=== PATIENT | female | born 1980 | race Caucasian/White ===

== ENCOUNTER → 2017-10-19 09:38 | Outpatient (CLI) | payer OTHER, SELFPAY ==
--- NOTE | 2017-10-19 10:00 | MRI_ITS ---
STUDY: MRI BRAIN WITH AND WITHOUT CONTRAST (ATTENTION PITUITARY GLAND) REASON FOR EXAM: Female, 37 years old. Pituitary adenoma, FOLLOW UP, NO NEW SYMPTOMS. TECHNIQUE: Standardized multiplanar fat and water weighted pulse sequences were obtained. 10 ml of Gadavist contrast material was administered intravenously for the contrast portion of the examination. COMPARISON: April 22, 2010 FINDINGS: Normal size of the pituitary gland for the patient?s age and gender. Again noted is the hypointense lesion at the midline measuring approximately 2 x 2 mm. Normal infundibular stalk and suprasellar cistern. Normal optic chiasm and hypothalamus. Normal size of the ventricles and extra-axial spaces for the patient's age. Normal white matter tracts of the supratentorial brain. Normal bilateral basal ganglia. Normal thalami. Normal flow voids within the major intracranial circulation suggesting patency by spin echo criteria. Normal venous enhancement. There is no enhancing intra-axial or extra-axial abnormality. There is no extra-axial fluid accumulation. Normal tectal plate and pineal gland. Normal midbrain, lucinda and medulla. Normal cerebellum. Normal basal cisterns. Normal bilateral temporal bones. Normal bilateral internal auditory canals. No demonstrated orbital abnormality, within the constraints of a routine brain study. Normal visualized paranasal sinuses. Normal calvarium and skull base. Normal visualized upper cervical spine. Normal visualized soft tissue structures. MRI/Brain W/WO Contrast IMPRESSION: Decreased pituitary nonenhancing lesion measuring now 2 mm. Leading differential considerations are Rathke's cleft cyst and microadenoma. Electronically Signed: Zen Tovar MD at 9:57 EDT Tel , Service support ,
--- NOTE | 2017-10-19 10:59 | US_ITS ---
STUDY: THYROID ULTRASOUND REASON FOR EXAM: Female, 37 years old. Thyromegaly. Pituitary tumor. TECHNIQUE: Ultrasound evaluation of the thyroid was performed with real-time and static brennan-scale imaging. COMPARISON: None. FINDINGS: RIGHT LOBE: The right lobe of the thyroid gland is enlarged and measures 4.7 x 2.1 x 1.2 cm. There is a homogeneous echotexture. There are no demonstrated solid, cystic or complex lesions. LEFT LOBE: The left lobe of the thyroid gland is enlarged that measures 4.8 x 1.9 x 1.2 cm. There is a homogeneous echotexture. Midpole solid nodule measuring 0.5 x 0.5 x 0.3 cm. ISTHMUS: The isthmus measures 3 mm which is normal. The regional lymph nodes are normal. US/Thyroid IMPRESSION: Thyromegaly. 0.5 cm solid nodule midpole of the left lobe. Electronically Signed: David Cole MD at 0:06 EDT , Service support ,
== END ==
PROVIDERS: Family Provider Internal Medicine; PCP Internal Medicine; Visit Provider Internal Medicine
DX: D35.2 Benign neoplasm of pituitary gland (principal); E01.0 Iodine-deficiency related diffuse (endemic) goiter
CPT/HCPCS: 70553; 76536; A9585

== ENCOUNTER → 2017-11-26 10:42 | Outpatient (CLI) | payer OTHER, SELFPAY ==
--- NOTE | 2017-11-26 10:46 | US_ITS ---
STUDY: ABDOMINAL ULTRASOUND - RIGHT UPPER QUADRANT REASON FOR VISIT: Female, 37 years old. Intermittent epigastric pain for 2 years, recently worsening. TECHNIQUE: Ultrasound evaluation of the right upper quadrant was performed with real-time and static brennan-scale imaging. TECHNICAL QUALITY: Adequate. Examination limited by bowel gas. COMPARISON: Prior comparison studies are not available for review at this time. FINDINGS: Liver: The liver measures 16.8 cm. There is mild increased echogenicity of the liver. The bile ducts are within normal limits. There is hepatic color flow. The direction of portal flow is hepatopetal. A well-defined 3.6 x 3.3 x 3.6 cm soft tissue mass is seen at the anterior inferior margin of the liver. Gallbladder: Normal distended gallbladder. The gallbladder wall measures 5.8 mm. There is a positive sonographic Kohli's sign. There is no pericholecystic fluid. There are multiple echogenic structures within the gallbladder, consistent with multiple gallstones. Common Bile Duct (C.B.D.): The common bile duct was obscured by shadowing from the gallbladder. Pancreas: There is nonvisualization of the pancreas. Right Kidney: Normal size of the right kidney. The right kidney measures 11.2 x 6.0 x 4.8 cm. Normal renal cortex. The right cortex measures 1.7 cm. There is no demonstrated renal mass or cyst. There is no right hydronephrosis. US/Gallbladder IMPRESSION: 1. Gallstones. There is a positive sonographic Kohli sign, and the gallbladder wall is thickened, findings that are associated with acute cholecystitis. No pericholecystic fluid, however. One might consider nuclear medicine HIDA scan for confirmation. 2. The common bile duct was obscured by shadowing from the gallstones. 3. The pancreas is obscured by bowel gas. 4. Mild increased echogenicity of the liver, which may reflect fatty infiltration. 3.6 cm mass at the margin of the liver correlates to a site of focal nodular hyperplasia described on previous reports. 5. Unremarkable right kidney. Electronically Signed: Raudel Montoya MD at 12:29 EDT , Service support ,
== END ==
PROVIDERS: Family Provider Internal Medicine; PCP Internal Medicine; Visit Provider Internal Medicine
DX: K80.00 Calculus of gallbladder with acute cholecystitis without obstruction (principal); K76.89 Other specified diseases of liver
CPT/HCPCS: 76705

== ENCOUNTER 2017-11-30 12:21 | Day surgery (SDC) | payer OTHER, SELFPAY ==
[2017-11-30] VITALS (9 sets, daily range): BP systolic 117–152; BP diastolic 49–96; PULSE 65–104; RESP 16–20; TEMP 36–36.6; O2SAT 97–100; BMI 39.4
--- NOTE | 2017-11-30 12:28 | EKG12_ITS ---
Test Reason : PRE OP Blood Pressure : / mmHG Vent. Rate : 079 BPM Atrial Rate : 079 BPM P-R Int : 140 ms QRS Dur : 086 ms QT Int : 368 ms P-R-T Axes : 024 -06 024 degrees QTc Int : 421 ms Normal sinus rhythm Normal ECG Confirmed by MONIQUE ROSARIO, JAMMIE ([id number]), metropolitan editor HANNAH CASTELLANO ([id number] on 12/03/2017 3:09:55 PM Referred By: Kenneth Price Confirmed By:JAMMIE AMAYA MD
[2017-11-30 12:51] LABS: Internal QC Validated? YES +Cl - CLEAR BKGD; Pregnancy, Urine Negative Negative
[2017-11-30 13:07] LABS: Absolute Lymphocyte Count 1.86 X10^3/ul (0.83-4.51); Absolute Neutrophil Count 2.1 X10^3/uL (2.0-7.7); Basophil# 0.01 X10^3/uL; Basophil% 0.2 % (0-1); Eosinophil# 0.13 X10^3/uL; Eosinophils% 2.9 % (0-5); Hemoglobin 14.2 g/dl (12.0-15.0); Lymphocyte # 1.86 X10^3/ul (4.0); Lymphocyte % 41.2 % (19-41); Mean Corp Hgb Conc 33.8 g/gl (32-36); Mean Corpuscular Volume 88.6 fL (81-99); Mean Platelet Vol. 10.1 fl (6.2-12.0); Monocyte# 0.37 X10^3/uL; Monocyte% 8.2 % (0-10); Neutrophil # 2.14 X10^3/uL (2.7-7.7); Neutrophil % 47.5 % (47-70); POSITIVE COUNT NO; POSITIVE DIFFERENTIAL NO; POSITIVE MORPHOLOGY NO; Platelet Count 249 K/mm3 (150-450); RBC Distribution Width CV 12.2 % (11.6-14.6); Red Blood Count 4.74 M/mm3 (4.2-5.4); White Blood Count 4.5 K/mm3 (4.4-11.0)
[2017-11-30 13:23] LABS: ALB/GLOB Ratio 1.2 RATIO (0.9-2.4); AST(SGOT) 15 U/L (15-37); Alanine Aminotransfer ALT/SGPT 46 U/L (13-56); Alkaline Phosphatase 92 U/L (45-117); Anion Gap 9 (5-15); BUN 10 mg/dL (7-18); BUN/Creat Ratio 12.8 RATIO (10-20); Calcium,Total 9.1 mg/dL (8.5-10.1); Chloride 105 mmol/L (98-107); Creatinine, Serum 0.78 mg/dL (0.55-1.02); EST Glomerular Filtration Rate 88 mL/min (>60); Est Glom Filt Rate - Afr Amer 107 mL/min (>60); Estimated Creatinine Clearance 88.86 ml/min; Globulin 3.3 g/dL (2.2-4.2); Glucose 96 mg/dL (74-106); Potassium 3.9 mmol/L (3.5-5.1); Protein, Total 7.3 g/dL (6.4-8.2); Sodium Level 142 mmol/L (136-145)
--- NOTE | 2017-11-30 14:00 | RAD_ITS ---
STUDY: INTRAOPERATIVE CHOLANGIOGRAM. REASON FOR EXAM: Female, 37 years old. Cholecystectomy. FLUOROSCOPY TIME (if supplied): (0:15) minutes/seconds TECHNIQUE: An intraoperative cholangiogram was performed by the surgeon. Imaging was submitted. COMPARISON: None. FINDINGS: The intrahepatic biliary ducts are unremarkable. The common bile duct is not dilated. No intraluminal filling defect is seen. There is free flow of contrast into the duodenum. RAD/Cholangiogram/ O R,Initial IMPRESSION: Unremarkable intraoperative cholangiogram. Electronically Signed: Sohan Díaz MD at 8:12 EDT Tel [phone], Service support ,
--- NOTE | 2017-11-30 14:10 | GALL_PTH ---
PATIENT: STEFANI LANGSTON LOC: [facility] [place] U#:[id number] AGE/SX: 37/F ROOM: RE11/30/[address]: Dr. Kenneth Price MD : [id number] BED: DIS: 11/30/2017 SPEC #: [id number] RECD: 12/01/17 08:10 STATUS: SAURAV DARRIAN #: [id number] SOY: 11/30/17 14:[address]: Kenneth Price DEPT: SURGICAL PATHOLOGY RECD BY: Kyra Sparks ENTERED: 12/01/17 09:04 SP TYPE: PATITO MARTINES DR: Dr. Anamaria Burt DO Tissues: Gallbladder, NOS Procedures: Surgery Specimen Level III HEADER OPERATION: Laparoscopic, cholecystectomy with IOC, possible open PRE-OP DIAGNOSIS: Chronic cholecystitis TISSUE SUBMITTED: Gallbladder MICROSCOPIC DIAGNOSIS Gallbladder: Chronic cholecystitis and cholelithiasis. SJ:reji 12/02/17 MICROSCOPIC DESCRIPTION Slides are reviewed. GROSS DESCRIPTION Received is one container labeled with the patient's name and designated gallbladder. The specimen consists of a gallbladder measuring 12 cm in length and up to 3 cm in diameter. The external surface is pink-mantilla, smooth and glistening for the most part. Focally it is granular, hemorrhagic and contains cautery artifact. The gallbladder contains green-yellow mucoid bile and distended with multiple multifaceted, yellowish stones and stone fragments measuring in aggregate 8 x 8 x 2.5 cm and 0.1 to 1 cm in greatest dimension. The mucosa is bile-stained and without any mass lesions. The gallbladder wall measures 0.2 cm in thickness. Kiln Firer sections from the gallbladder and the cystic duct are submitted in one cassette. / SJ:reji 12/01/17 TC:3 CPT: 24377
[2017-11-30] MEDS: Bupivacaine Mpf 0.5% 30 ML VIAL (15:00)
--- NOTE | 2017-11-30 15:15 | OP.PCM_ITS ---
Problem List (1) Biliary colic Status: Acute Report of Operation Date of Procedure: 11/30/17 Pre-Operative Diagnosis: Biliary colic and cholelithiasis Post-Operative Diagnosis: Same Surgery/Procedure Performed:: Laparoscopic cholecystectomy with cholangiogram Specimen's removed: Gallbladder and contents Description of Procedure: After obtaining informed consent patient was brought back to the operating room. General anesthesia was induced. The abdomen was prepped and draped in usual sterile fashion. A small midline incision was made superior to the umbilicus and deepened to the level of fascia. The fascia was elevated and incised. Next the peritoneum was elevated and incised in the same fashion. Finger sweep was performed and the Hayes trocar was placed into the abdomen. The balloon was inflated. The abdomen was inflated to 15 mmHg. Next a camera was introduced into the abdomen and the abdomen was inspected. Next under direct visualization three 5-mm ports were placed one subxiphoid and 2 subcostal. Next the gallbladder was elevated and retracted toward the right shoulder. The peritoneum was stripped from the gallbladder. The infundibulum was located and retracted laterally. Next the triangle of Calot was dissected and the cystic duct and cystic artery were identified. Cholangiograms were performed. The Tapia catheter was used to clamp across the infundibulum and the needle was inserted into the gallbladder. Under fluoroscopy contrast was instilled into the gallbladder and the common duct, cystic duct as well as proximal hepatic ducts were identified. There was good filling of the duodenum. There were no filling defects noted in the common bile duct. The clamp was removed as well as the needle and the infundibulum was grasped once more. Three hemolock clips were placed across the cystic duct. The cystic duct was then divided leaving 2 clips on the stump. The cystic artery was clipped and divided in the same fashion. The hook cautery was then used to take the gallbladder off of the gallbladder bed. Hemostasis was obtained. Gallbladder fossa was irrigated and no active bleeding or bile leakage was noted. Next the camera switched to a 5 mm camera and introduced in the subxiphoid port. An Endopouch bag was placed through the umbilical port and the gallbladder was placed into it. The gallbladder was then removed through the umbilical incision. The camera was then reinserted through the umbilical port. The gallbladder fossa was inspected once more and noted to be hemostatic with no leaking bile. The abdomen was suctioned dry the 5 mm ports were removed under direct visualization. The umbilical port was then removed and the air was removed from the abdomen. Next using an 0 Vicryl suture the umbilical fascia was closed in a [id number] fashion. The umbilical port site was irrigated local anesthetic was administered to all the incisions. All the incisions were closed subcuticular 4-0 Monocryl sutures followed by Steri- Strips and dressings. The patient was awoken and taken to PACU in stable condition. - Admit VTE Documentation VTE Mechan Device Prophylaxis: SCD's
--- NOTE | 2017-11-30 15:16 | DCINST_ITS ---
Discharge Diet: Light diet - advance as tolerated Discharge Activity: Return to Normal Activity, May Not Drive - for 2-3 days or while taking narcotic pain medicataions., - - Do not drive, work heavy equipment or sign legal documents for 24 hours. May shower in (days): 1 - with the bandage in place. Lifting Restrictions: 20 lbs for 2 weeks, ok for light duty when you feel up to it Additional Activity Instructions:: Pain medication may cause nausea. You should typically eat light foods as you take your pain medications. Pain medication may also cause constipation. If this is a problem for you, please discuss with your doctor. Call your doctor if your incision/area has: Continuous Slow Oozing, Sudden Increased Bleeding, Increased Pain/ Swelling, Increased Redness, Foul Smelling Discharge, Fever of 101 or Higher Call your doctor if you observe: Fever of 101 or Higher Suture Line Care: Avoid Pulling/Pushing, Avoid Pinching/Bending Additional Dressing/Incision Instructions:: Leave operative bandaids on for 2 days. When you remove dressing, leave Steri-Strips on until your follow-up appointment, or until the Steri-Strips fall off on their own. Allergies/Adverse Reactions: Allergies No Known Allergies Allergy (Verified 11/29/17 14:56) Medications to take at Discharge Albuterol Inhaler [Ventolin Hfa (SP)] 1 puff INHALATION Q4H PRN PRN 03/25/16 Cholecalciferol (Vitamin D3) [Vitamin D] 50,000 unit PO QWEEK 04/05/16 Multivitamin 1 tab PO DAILY 11/30/17 Oxycodone HCl/Acetaminophen [Percocet 5/325] 1 - 2 tablet PO Q4H PRN PRN 7 Days #30 tablet 11/30/17 The following prescriptions were given: Oxycodone HCl/Acetaminophen [Percocet 5/325] 1 - 2 tablet PO Q4H PRN PRN 7 Days #30 tablet PRN Reason: Pain Primary Care Physician: Anamaria Burt DO [Primary Care Provider] - Please Follow Up With: Kenneth Price MD When: Please call tomorrow to schedule 2 week follow up appointment.
== END 2017-11-30 18:51 | disposition home or self-care (01) ==
LOC: SDC 12:23 → AC 12:23
PROVIDERS: Family Provider Internal Medicine; PCP Internal Medicine; Visit Provider Surgery
PROC: (CPT 47610; principal; 2017-11-30 13:50)
DX: K80.10 Calculus of gallbladder with chronic cholecystitis without obstruction (principal); J45.909 Unspecified asthma, uncomplicated
CPT/HCPCS: 00790; 47563; 74300; 76000; 80053; 81025; 85025; 88304; 93005; J7120; J2405

== ENCOUNTER 2021-06-20 10:32 | Emergency (ER) | payer OTHER, SELFPAY ==
[2021-06-20] VITALS (8 sets, daily range): BP systolic 106–139; BP diastolic 73–93; PULSE 74–90; RESP 16–18; TEMP 36.7; O2SAT 96–100; BMI 41.2
--- NOTE | 2021-06-20 11:21 | EKG12_ITS ---
Test Reason : CP Blood Pressure : / mmHG Vent. Rate : 094 BPM Atrial Rate : 094 BPM P-R Int : 164 ms QRS Dur : 084 ms QT Int : 356 ms P-R-T Axes : 046 -11 029 degrees QTc Int : 445 ms Normal sinus rhythm Normal ECG Confirmed by MARITZA ROSARIO, CHIP ([id number]), greeting card editor NARESH SAINI ([id number]) on 06/23/2021 9:11:56 AM Referred By: ES/AR Confirmed By:JAMIL SALAS MD
--- NOTE | 2021-06-20 11:30 | RAD_ITS ---
STUDY: X-RAY CHEST REASON FOR EXAM: Female, 40 years old. chest pain TECHNIQUE: Single AP portable view of the chest. COMPARISON: 05/20/2016 FINDINGS: The lungs are clear and expanded. There is no demonstrated pleural abnormality. Normal size heart. Normal mediastinum and john. Normal visualized pulmonary arteries. Normal visualized aortic arch and descending thoracic aorta. Normal visualized thoracic spine. Normal visualized ribs, clavicles, and shoulders. There is no demonstrated abnormality of the visualized soft tissue structures of the upper abdomen. RAD/Chest 1 View (Portable) IMPRESSION: Normal x-ray examination of the chest. Electronically Signed: Aly Moore MD at 16:22 EST Tel , Service support ,
[2021-06-20 11:35] LABS: Absolute Lymphocyte Count 1.89 X10^3/uL (0.83-4.51); Absolute Neutrophil Count 3.4 X10^3/uL (2.0-7.7); Basophil# 0.02 X10^3/uL; Basophil% 0.3 % (0-1); Eosinophil# 0.36 X10^3/uL; Eosinophils% 5.9 % (0-5); Hemoglobin 13.9 g/dL (12.0-15.0); Lymphocyte # 1.89 X10^3/ul (0.83-4.51); Lymphocyte % 30.8 % (19-41); Mean Corp Hgb Conc 33.9 g/dL (32-36); Mean Corpuscular Hgb 30.4 pg (27.0-32.0); Mean Corpuscular Volume 89.7 fL (81-99); Monocyte# 0.47 X10^3/uL; Monocyte% 7.7 % (0-10); NRBC Flagged by Analyzer 0 % (0-5); Neutrophil # 3.37 X10^3/uL (2.7-7.7); Platelet Count 271 K/mm3 (150-450); RBC Distribution Width CV 11.9 % (11.6-14.6); RBC Distribution Width SD 38.6 fl (35.1-43.9); Red Blood Count 4.57 M/mm3 (4.2-5.4); White Blood Count 6.1 K/mm3 (4.4-11.0)
[2021-06-20] MEDS: Aspirin 81 MG TAB.CHEW 324 MG PO (11:37)
[2021-06-20] MEDS: Nitroglycerin SL (ED/IMG/CATH) 0.4 MG TABLET SL ×3 (11:38→12:02)
[2021-06-20 11:57] LABS: Anion Gap 6 (5-15); BUN 17 mg/dL (7-18); BUN/Creat Ratio 25.7 RATIO (10-20); Calcium,Total 9.8 mg/dL (8.5-10.1); Chloride 105 mmol/L (98-107); Creatinine, Serum 0.66 mg/dL (0.55-1.02); EST Glomerular Filtration Rate 105 mL/min (>60); Est Glom Filt Rate - Afr Amer 127 mL/min (>60); Estimated Creatinine Clearance 101.96 ml/min; Glucose 97 mg/dL (74-106); Sodium Level 141 mmol/L (136-145); Troponin-I HS < 3 pg/mL (3.0-54.0)
--- NOTE | 2021-06-20 14:25 | ED.VIS.CHEST ---
HPI History of Present Illness Chief Complaint: Chest Pain Informant: patient Onset/Context/Timing Onset: Yesterday Activity at onset: sudden and rest Timing: Intermittent Quality: Positive for Tightness Location: Substernal and Left Chest Worsened By: Nothing Relieved By: Nothing Associated Symptoms: Positive for Nausea, Lightheadedness, Acid Reflux and Palpitations; Negative for Vomiting, Diaphoresis, Dyspnea, Cough and Fever Narrative Narrative: Patient presents with chest pain that began today. Patient states she also had a similar episode yesterday. Patient states the pain radiates to her left shoulder and left arm. Patient states it is mainly over the substernal and left chest area. Patient describes as a tightness. Patient states nothing makes it better nothing makes it worse. Patient admits to some mild nausea but denies any vomiting. Patient denies any diaphoresis. Patient denies any shortness of breath or cough. Patient does admit to some lightheadedness and palpitations. Patient also has a history of reflux disease. CVD Risk Factors: Negative for Hypertension, Diabetes, Hypercholesterolemia, Family History 1' </=55 and Smoking PE Risk Factors: Negative for Recent Travel/Surgery, Recent Immobilization, Prior DVT or PE, Cancer and OCP + Smoking + >/=35 PFSH PFSH Medical History Asthma Depression Gallstones Home Medications albuterol sulfate 1 puff INHALATION Q4H PRN PRN 03/25/16 [History Last Taken Unknown] cholecalciferol (vitamin D3) 50,000 unit PO QWEEK 04/05/16 [History Last Taken Unknown] Multivitamin 1 tab PO DAILY 11/30/17 [History Last Taken Unknown] aspirin [Aspir-81] 81 mg PO DAILY 06/20/21 [History Last Taken Unknown] Allergy/AdvReac Type Severity Reaction Status Date / Time No Known Allergies Allergy Verified 06/20/21 10:32 Family History Father Diabetes Hypertension Cancer bladder Brother Asthma Mother Asthma Surgical History S/P laparoscopic cholecystectomy (~11/2017) S/P tonsillectomy S/P wisdom tooth extraction Social History Smoking Status: Never smoker ROS ROS ED Constitutional Constitutional ED: Denies chills or fever(s) Eyes Eyes: Denies blurry vision or change in vision ENT ENT ED: Denies rhinorrhea or sore throat Cardiovascular Cardiovascular: Reports chest pain and palpitations Respiratory/Chest Respiratory/Chest: Denies cough or dyspnea Gastrointestinal Gastrointestinal: Reports nausea; Denies abdominal pain or vomiting Genitourinary Genitourinary ED: Denies dysuria or hematuria Musculoskeletal Musculoskeletal: Denies back pain or neck pain Integumentary Denies abscess or rash Neurologic Neurologic: Denies headache(s) or weakness Allergic/Immunologic Allergic/Immunologic ED: Denies mouth swelling or urticaria EXAM Physical Exam Const Vital Signs: 06/20/21 10:33 06/20/21 11:36 06/20/21 11:38 Temperature 98.0 F Temperature Source Oral Pulse Rate 90 87 Respiratory Rate 16 Blood Pressure 139/78 H 121/91 H Blood Pressure Mean 98 Pulse Ox 100 99 Oxygen Delivery Method Room Air Room Air 06/20/21 11:40 06/20/21 11:49 06/20/21 12:02 Temperature Temperature Source Pulse Rate 85 79 74 Respiratory Rate 18 16 Blood Pressure 121/91 H 106/93 H 119/76 Blood Pressure Mean 101 90 Pulse Ox 100 97 Oxygen Delivery Method Room Air Room Air 06/20/21 13:11 06/20/21 14:44 Temperature Temperature Source Pulse Rate 84 Respiratory Rate 16 16 Blood Pressure 118/83 H 121/73 H Blood Pressure Mean 94 Pulse Ox 99 96 Oxygen Delivery Method Room Air Positive well nourished, well developed and obese General Appearance ED: well developed Nutritional Appearance: obese HEENT normocephalic and atraumatic Eyes PERRL and EOMs intact bilaterally Neck supple and no JVD Chest Wall palpation of chest normal Resp normal respiratory effort and clear to auscultation bilaterally Effort and Inspection: Negative for respiratory distress Cardio regular rate, regular rhythm and no murmurs GI normal to inspection, nondistended, normoactive bowel sounds, soft to palpation, non-tender and non-distended Extremity normal to inspection General Extremety ED: Negative for edema or tenderness General Extremity: Negative for edema Neuro oriented x3, CN's II-XII intact bilaterally and no sensory deficits noted Sensorium / Orientation: awake and alert Motor Exam: strength 5/5 throughout Psych mental status grossly normal Heart Score History: Moderately Suspicious ECG: Normal Age: </= 45 years Risk Factors: No Risk Factors Troponin: </= Normal Limit Score: 1 MDM MDM MDM Narrative Medical decision making narrative: EKG was obtained. On my interpretation, it showed a normal sinus rhythm with a rate of 94. RI interval, QRS interval, and QTc intervals were all normal. [place] was normal. There are no acute ST or T wave changes. Portable 1 view chest x-ray was obtained. On my interpretation, lung to are clear. There is normal cardiac silhouette. Bony thorax is normal. There is no acute process noted. Radiologist also interpreted the x-ray and agrees. CBC and basic metabolic profile were within normal limits. High-sensitivity troponin was less than 3. Patient was advised of her findings. Patient has a HEART score of 1. Patient was advised that this is low risk for acute cardiac event. Patient was instructed to follow-up with her primary care physician in 3 to 5 days for further evaluation. Patient understood and was agreeable with the plan. All questions were answered. Lab Data Attestation: I reviewed the patient's lab results. Labs: Laboratory Results - last 24 hr 06/20/21 06/20/21 11:05 11:05 WBC 6.1 RBC 4.57 Hgb 13.9 Hct 41.0 MCV 89.7 MCH 30.4 MCHC 33.9 RDW Std Deviation 38.6 RDW Coeff of Linda 11.9 Plt Count 271 MPV 10.0 Immature Gran % (Auto) 0.300 Neut % (Auto) 55.0 Lymph % (Auto) 30.8 Harney % (Auto) 7.7 Eos % (Auto) 5.9 H Baso % (Auto) 0.3 Absolute Neuts (auto) 3.4 Absolute Lymphs (auto) 1.89 Nucleated RBC % 0 Sodium 141 Potassium 4.0 Chloride 105 Carbon Dioxide 30.0 Anion Gap 6 BUN 17 Creatinine 0.66 Estim Creat Clear Calc 101.96 Est GFR (MDRD) Af Amer 127 Est GFR (MDRD) Non-Af 105 BUN/Creatinine Ratio 25.7 H Glucose 97 Calcium 9.8 Troponin I High Sens < 3 L Radiography Chest X-Ray - ED: 1 View, Read by ED Physician and Normal EKG Initial EKG: Attestation: I personally reviewed and interpreted this EKG as follows: Interpretation: Sinus Rhythm (94) and No Acute Injury Pattern Discharge Plan Triage Chief Complaint: Chest Pain ED Provider: Sean Ridley Dx/Rx/DC Orders Clinical Impression: Chest pain Instructions: ED Chest Pain, Uncertain Cause Prescriptions: No Action albuterol sulfate 1 INHALER inhaler 1 puff INHALATION Q4H PRN PRN (Reason: Wheezing) RF: 0 cholecalciferol (vitamin D3) 50,000 UNIT capsule 50,000 unit PO QWEEK RF: 0 Multivitamin 1 tab PO DAILY RF: 0 aspirin [Aspir-81] 81 mg Tablet,Delayed Release (Dr/Ec) 81 mg PO DAILY RF: 0 Primary Care Provider: Anamaria Burt Referrals: Anamaria Burt DO [Primary Care Provider] - 3-5 Days Disposition Disposition: Home, Self Care Discharge Date/Time: 06/20/21 14:49
== END 2021-06-20 14:49 | disposition home or self-care (01) ==
PROVIDERS: Emergency Provider Emergency Medicine; PCP Internal Medicine
DX: R07.9 Chest pain, unspecified (principal); E66.9 Obesity, unspecified; J45.909 Unspecified asthma, uncomplicated; Z79.82 Long term (current) use of aspirin; Z79.899 Other long term (current) drug therapy
CPT/HCPCS: 71045; 80048; 84484; 85025; 93005; 99285

== ENCOUNTER → 2024-02-10 | Outpatient (CLI) | payer OTHER, SELFPAY ==
--- NOTE | 2024-02-10 16:28 | BD_ITS ---
STUDY: DUAL ENERGY X-RAY ABSORPTIOMETRY / DXA REASON FOR EXAM: Female, 43 years old. Screening, estrogen def TECHNIQUE: Bone Mineral Density (BMD) measurements of lumbar spine and bilateral hips were obtained. COMPARISON: None. FINDINGS: Lumbar Spine (L1-L4): g/cm2 (0.956) / T-score (-1.3) / Z-score (-0.9) Findings are suggestive of osteopenia with a low fracture risk. Left Femur Total: g/cm2 (1.025) / T-score (0.7) / Z-score (0.9) Left Femoral Neck: g/cm2 (0.871) / T-score (0.2) / Z-score (0.6) Right Femur Total: g/cm2 (1.003) / T-score (0.5) / Z-score (0.8) Right Femoral Neck: g/cm2 (0.850) / T-score (0.0) / Z-score (0.4) BD/Dexa Bone Density Study IMPRESSION: The patient is considered osteopenic as outlined below according to World Wan Organization (WHO) criteria with a low fracture risk. Reference Information: The T-score is the number of standard deviations above or below the standard which is normal for young adults at their peak bone mineral density. The World Health Organization (WHO) interprets the T-scores as follows: Above -1 Normal bone density Between -1 and -2.5 Osteopenia Equal to / or below -2.5 Osteoporosis As a practical clinical guideline, osteopenia may be graded as follows: Mild -1 through -1.5 Moderate -1.6 through -2.0 Severe -2.1 through -2.4 The Z-score is the number of standard deviations above or below age-matched controls. A Z-score of less than -1.5 would be considered abnormal. References: 1. NIH Osteoporosis and Related Bone Diseases www osteo.org 2. International Society for Clinical Densitometry www iscd.org 3. National Osteoporosis Foundation www nof.org Electronically Signed: Sohan Díaz MD at 14:34 EDT ,
== END | disposition home or self-care (01) ==
LOC: OPBD 16:28
PROVIDERS: PCP Internal Medicine; Referring Provider Internal Medicine Endocrinology, Diabetes & Metabolism; Visit Provider Internal Medicine Endocrinology, Diabetes & Metabolism
DX: D35.2 Benign neoplasm of pituitary gland (principal)
CPT/HCPCS: 77080

== ENCOUNTER → 2024-02-24 | Outpatient (CLI) | payer OTHER, SELFPAY ==
--- NOTE | 2024-02-24 07:33 | MRI_ITS ---
STUDY: MRI BRAIN WITH AND WITHOUT CONTRAST REASON FOR EXAM: Female, 43 years old. Size of pituitary adenoma -- ATTN: THIN CUTS PITUITARY TECHNIQUE: Standardized multiplanar fat and water weighted pulse sequences were obtained. IV 24 cc Clariscan was administered for the contrast portion of the examination. COMPARISON: April 22, 2010 and October 19, 2017 FINDINGS: Normal size of the ventricles and extra-axial spaces for the patient''s age. Normal white matter tracts of the supratentorial brain. There is no evidence for recent intracranial ischemia or other cause of cytotoxic edema on diffusion weighted imaging (DWI). Normal T2* images of the brain without demonstrated susceptibility artifact. There is no demonstrated hemosiderin stain. Normal bilateral basal ganglia. Normal thalami. There is no extra-axial fluid accumulation. Normal flow voids within the major intracranial circulation suggesting patency by spin echo criteria. Normal venous enhancement. There is no enhancing intra-axial or extra-axial abnormality. There are stable 0.3 and 0.4 cm decreased enhancing regions in the right and left pituitary gland suggesting microadenomas, series 13 images 8 and 6. There is no suprasellar mass. Normal tectal plate and pineal gland. Normal midbrain, lucinda and medulla. Normal cerebellum. Normal basal cisterns. Normal bilateral temporal bones. Normal bilateral internal auditory canals. No demonstrated orbital abnormality, within the constraints of a routine brain study. Normal visualized paranasal sinuses. Normal calvarium and skull base. Normal visualized soft tissue structures. Normal visualized upper cervical spine. MRI/Brain W/WO Contrast IMPRESSION: Stable appearance of the pituitary gland with decreased enhancing regions suggesting microadenomas. No suprasellar mass. Electronically Signed: Carl Montes MD at 9:44 EDT ,
== END | disposition home or self-care (01) ==
PROVIDERS: PCP Internal Medicine; Referring Provider Internal Medicine Endocrinology, Diabetes & Metabolism; Visit Provider Internal Medicine Endocrinology, Diabetes & Metabolism
DX: D35.2 Benign neoplasm of pituitary gland (principal)
CPT/HCPCS: 70553; A9575

== ENCOUNTER → 2024-08-01 | Outpatient (CLI) | payer OTHER, SELFPAY ==
[2024-08-01 10:33] LABS: AST(SGOT) 14 U/L (15-37); Alanine Aminotransfer ALT/SGPT 24 U/L (13-56); Albumin, Serum 3.7 g/dL (3.2-5.0); Alkaline Phosphatase 81 U/L (45-117); Anion Gap 6 (5-15); BUN 14 mg/dL (7-18); BUN/Creat Ratio 19.4 RATIO (10-20); Calcium,Total 9.2 mg/dL (8.5-10.1); Chloride 104 mmol/L (98-107); Creatinine, Serum 0.72 mg/dL (0.55-1.02); EST Glomerular Filtration Rate 93 mL/min (>60); Est Glom Filt Rate - Afr Amer 113 mL/min (>60); Estradiol 34.5 pg/mL; Follicle Stimulating Hormone 4.5 mIU/mL; Globulin 3.6 g/dL (2.2-4.2); Glucose 103 mg/dL (74-106); Luteinizing Hormone 4.8 mIU/mL; Potassium 4.1 mmol/L (3.5-5.1); Protein, Total 7.3 g/dL (6.4-8.2); Sodium Level 138 mmol/L (136-145)
[2024-08-02 08:10] LABS: PROLACTIN 61.4 ng/mL (4.8-33.4); Thyroid Peroxidase AB 42 IU/mL (0-34)
== END | disposition home or self-care (01) ==
LOC: LAB 09:13
PROVIDERS: PCP Internal Medicine; Referring Provider Internal Medicine Endocrinology, Diabetes & Metabolism; Visit Provider Internal Medicine Endocrinology, Diabetes & Metabolism
DX: D35.2 Benign neoplasm of pituitary gland (principal); E01.0 Iodine-deficiency related diffuse (endemic) goiter
CPT/HCPCS: 80053; 82670; 83001; 83002; 84146; 84443; 86376